=== PATIENT | male | born 1975 | race Caucasian/White ===

== ENCOUNTER 2019-07-22 12:33 | Emergency (ER) | payer BC, OTHER ==
[~2019-07-22] VITALS: Ht 182.9 cm; Wt 112.5 kg
[2019-07-22 13:02] VITALS: BP 139/88
[2019-07-22] MEDS ORDERED: IBUPROFEN 600 MG TAB PO ONE ×2 (13:13→13:15)
[2019-07-22] MEDS ORDERED: HYDROcodone-ACET 10/325MG TAB PO ONE (13:15)
== END 2019-07-22 14:09 | disposition home or self-care (01) ==
LOC: ER 12:33
DX: S62.102A Fracture of unspecified carpal bone, left wrist, initial encounter for closed fracture (principal); S42.402A Unspecified fracture of lower end of left humerus, initial encounter for closed fracture; F17.210 Nicotine dependence, cigarettes, uncomplicated; F12.10 Cannabis abuse, uncomplicated; W13.2XXA Fall from, out of or through roof, initial encounter; Y93.89 Activity, other specified; Y92.89 Other specified places as the place of occurrence of the external cause; Y99.8 Other external cause status
CPT/HCPCS: 29105; 73070; 73100; 73120; 73502